=== PATIENT | male | born 1980 | race Caucasian/White ===

== ENCOUNTER 2020-10-16 20:42 | Emergency (ER) | payer SELFPAY ==
[~2020-10-16] VITALS: Ht 175.3 cm; Wt 71.2 kg
[2020-10-16] MEDS ORDERED: ALPRAZOLAM 1 MG TAB PO ONE ×2 (21:30)
[2020-10-16] MEDS ORDERED: ALPRAZOLAM 1 MG TAB ONE (21:32)
== END 2020-10-16 21:25 | disposition home or self-care (01) ==
LOC: ER 20:56
DX: F32.9 Major depressive disorder, single episode, unspecified (principal); F41.9 Anxiety disorder, unspecified; Z87.891 Personal history of nicotine dependence
CPT/HCPCS: 99282